=== PATIENT | male | born 1995 | race Caucasian/White ===

== ENCOUNTER 2019-11-20 11:04 | Inpatient (IN) ==
[2019-11-20 12:15] LABS: ABS Eosinophils 0.2 10^3/ul (0-0.6); ABS Monocytes 0.6 10^3/ul (0-0.8); ABS Neutrophils 5.3 10^3/ul (1.5-7.7); Eosinophil % 1.8 %; Hematocrit 43 % (42-52); Hemoglobin 14.9 g/dL (14.0-18.0); Lymphocyte % 32.7 %; Mean Corpuscular HGB Conc 35 g/dL (31-36); Mean Corpuscular Hemoglobin 32 pg (27-31); Mean Corpuscular Volume 94 fL (80-94); Mean Platelet Volume 7.7 fL (7.4-10.4); Nucleated Red Blood Cells % 0.1; Platelet Count 319 10^3/uL (150-450); Red Blood Count 4.62 10^6 /uL (4.18-5.48); Red Cell Distribution Width 13 % (10-15); White Blood Count 9.1 10^3/uL (3.5-10.8)
[2019-11-20 12:27] LABS: ALT 23 U/L (7-52); AST 25 U/L (13-39); Albumin 5.4 g/dL (3.2-5.2); Albumin/Globulin Ratio 1.9 (1-3); Alkaline Phosphatase 57 U/L (34-104); Anion Gap 7 mmol/L (2-11); CO2 Carbon Dioxide 28 mmol/L (22-32); Calcium 9.9 mg/dL (8.6-10.3); Chloride 104 mmol/L (101-111); EGFR African American 113.4 (>60); EGFR Non-African American 93.7 (>60); Globulin 2.8 g/dL (2-4); Glucose 113 mg/dL (70-100); Potassium 3.8 mmol/L (3.5-5.0); Sodium 139 mmol/L (135-145); Total Protein 8.2 g/dL (6.4-8.9)
[2019-11-20 12:57] LABS: Alcohol, S < 10 mg/dL (<10); Salicylate < 2.50 mg/dL (<30)
[2019-11-20 13:11] LABS: TSH Ultra Thyroid Stim Horm 2.44 mcIU/mL (0.34-5.60)
[2019-11-20 13:16] LABS: Acetaminophen < 15 mcg/mL
[2019-11-20 13:19] LABS: BUN/Creatinine Ratio 11.1 (8-20); Blood Urea Nitrogen 11 mg/dL (6-24)
[2019-11-20] MEDS ORDERED: Al Hydrox/Mg Hydrox/Simet LIQ 30 ML UDC PO PRN (16:19)
[2019-11-20 16:23] LABS: Urine Appearance Cloudy; Urine Bilirubin Negative (Negative); Urine Blood Negative (Negative); Urine Color Yellow; Urine Glucose Negative (Negative); Urine Ketones Negative (Negative); Urine Nitrite Negative (Negative); Urine Protein Negative (Negative); Urine Urobilinogen Negative (Negative)
[2019-11-20 17:03] LABS: Urine Benzodiazepine Screen None Detected (None Detect); Urine Cannabinoids Screen Presumptive Positive (None Detect); Urine Opiates Screen None Detected (None Detect)
[2019-11-22 09:15] LABS: HCG Pregnancy < 0.60 mIU/mL
[2019-11-24 08:29] VITALS: BP 134/74
== END 2019-11-24 13:10 | disposition home or self-care (01) | DRG 885 ==
LOC: ED 11:04 → BSU 16:19 → ED 18:42
PROVIDERS: ADMIT Psychiatry & Neurology Psychiatry; ATTEND Psychiatry & Neurology Psychiatry

== ENCOUNTER 2022-01-20 23:14 | Inpatient (IN) ==
[2022-01-21] MEDS ORDERED: Al Hydrox/Mg Hydrox/Simet LIQ 30 ML UDC PO PRN (05:10)
[2022-01-21] MEDS ORDERED: Nicotine GUM 2MG FRUIT FLAVOR PO PRN (06:00)
[2022-01-21 09:51] LABS: ABS Basophils 0.1 10^3/ul (0-0.2); ABS Eosinophils 0.3 10^3/ul (0-0.6); ABS Lymphocytes 2.7 10^3/ul (1.0-4.8); ABS Monocytes 0.8 10^3/ul (0-0.8); ABS Neutrophils 5.8 10^3/ul (1.5-7.7); Eosinophil % 3.4 %; Hematocrit 48 % (42-52); Hemoglobin 16.3 g/dL (14.0-18.0); Lymphocyte % 28.3 %; Mean Corpuscular HGB Conc 34 g/dL (31-36); Mean Corpuscular Hemoglobin 33 pg (27-31); Mean Corpuscular Volume 96 fL (80-94); Mean Platelet Volume 7.8 fL (7.4-10.4); Nucleated Red Blood Cells % 0.1; Platelet Count 289 10^3/uL (150-450); Red Cell Distribution Width 13 % (10-15); White Blood Count 9.7 10^3/uL (3.5-10.8)
[2022-01-21] MEDS: Vitamin THERAPEUTIC TAB PO SCH (09:53)
[2022-01-21 10:24] LABS: Albumin 5.3 g/dL (3.2-5.2); Calcium 10.2 mg/dL (8.6-10.3); Globulin 2.6 g/dL (2-4); Potassium 4.4 mmol/L (3.5-5.0); Total Bilirubin 1.5 mg/dL (0.2-1.0); Total Protein 7.9 g/dL (6.4-8.9); eGFR CKD-EPI 90.6 (>60)
[2022-01-21 10:36] LABS: TSH Ultra Thyroid Stim Horm 3.94 mcIU/mL (0.34-5.60)
[2022-01-21] MEDS: CMCS: Lamotrigine XR 300 mg TAB (NF) PO SCH (15:32)
[2022-01-21] MEDS ORDERED: Doxepin 3 mg TAB (NF) PO SCH (21:00)
[2022-01-22] MEDS: Vitamin THERAPEUTIC TAB PO SCH (08:07)
[2022-01-22] MEDS: CMCS: Lamotrigine XR 300 mg TAB (NF) PO SCH (08:09)
[2022-01-22 08:29] LABS: HDL Cholesterol 74.8 mg/dL
[2022-01-22 09:34] VITALS: BP 126/74
== END 2022-01-22 17:35 | disposition home or self-care (01) | DRG 885 ==
LOC: ED 23:14 → EDHOLD 01-21 04:05 → BSU 01-21 08:59
PROVIDERS: ADMIT Psychiatry & Neurology Psychiatry; ATTEND Psychiatry & Neurology Psychiatry